=== PATIENT | female | born 1965 | race Caucasian/White ===

== ENCOUNTER 2016-06-10 14:51 | Outpatient (CLI) | payer BC ==
[2016-06-10 15:31] LABS: ALT (SGPT) 11 U/L (0-55); AST (SGOT) 14 U/L (5-34); Alkaline Phosphatase 60 U/L (40-150); Anion Gap 15 mmol/L (10-20); BUN (Urea Nitrogen) 18 mg/dL (9.8-20.1); Bilirubin, Total 1.2 mg/dL (0.2-1.2); Calc. Creatinine Clearance 0 mL/min (70-130); Calcium 9.3 mg/dL (7.8-10.44); Carbon Dioxide 22 mmol/L (22-29); Chloride 108 mmol/L (98-107); Estimated GFR-MDRD 50; LDL Cholesterol, Calculated 113 mg/dL; Protein, Total 6.9 g/dL (6.0-8.3)
[2016-06-10 16:13] LABS: #Basophils 0.1 thou/uL (0.0-0.2); #Eosinphils 0.2 thou/uL (0.0-0.7); #Lymphocytes 3.2 thou/uL (1.20-3.40); #Monocytes 0.6 thou/uL (0.11-0.59); #Neutrophils 5.2 thou/uL (1.40-6.50); %Basophils 1.1 % (0.0-1.0); %Eosinophils 1.7 % (0.0-10.0); %Monocytes 6.1 % (0.0-10.0); Hematocrit 42.3 % (36.0-47.0); Mean Platelet Volume 7.1 fL (7.4-10.4); Red Blood Cell (RBC) Count 4.86 mill/uL (4.20-5.40); White Blood Cell (WBC) Count 9.2 thou/uL (4.8-10.8)
[2016-06-10 19:41] LABS: Hemoglobin A1c 8.1 % (4.0-6.0)
== END 2016-06-10 14:52 ==
LOC: HPCALD 14:51
PROVIDERS: ATTEND Physician Assistant
DX: E78.5 Hyperlipidemia, unspecified (principal); E11.9 Type 2 diabetes mellitus without complications
CPT/HCPCS: 36415; 80053; 80061; 83036; 84443; 85025

== ENCOUNTER 2016-08-14 21:41 | Emergency (ER) | payer BC, OTHER ==
--- NOTE | 2016-08-15 08:34 | CT ---
PRELIMINARY REPORT/[facility]/EMERGENCY AFTER HOURS PROCEDURE: EXAM: CT Head Without Intravenous Contrast CLINICAL HISTORY: 51 years old, female; Injury or trauma; Injury Pt was trampled by a horse; Work related; Initial enc ounter; Concussion / head injury; Without loss of consciousness; Injury date: 08/14/16; Injury details : Pt complains of headache and nausea; Patient HX: Pt was trampled by a stallion horse around [address]. Pt complaining of headache and nausea. Pt states she may feel like she has a concussion. TECHNIQUE: Axial computed tomography images of the head/brain without intravenous contrast. COMPARISON: No relevant prior studies available. FINDINGS: Normal brain morphology. Guzman-white matter differentiation is preserved. No intracranial hemorrhage. No mass, mass effect or midline shift. No extra-axial fluid collection. No acute hydrocephalus. Cortical sulci and basal cisterns are preserved without effacement. Orbits are unremarkable. Paranasal sinuses are clear. Mastoid air cells are clear. No acute fracture. Extra calvarial soft tissues unremarkable. IMPRESSION: No acute intracranial abnormality. Thank you for allowing us to participate in the care of your patient. Dictated and Authenticated by: Donnie Becerra MD 08/14/2016 10:36 PM Central Time ([place] \T\ [place]) FINAL REPORT CT BRAIN: Date: 08/14/[address] was done following trauma. The ventricles are normal in size with no shift. No intr acranial bleeding or extra-axial hematoma was seen. There is no sign of mass, edema, or stroke. The calvarium appears intact and the sphenoid sinus and mastoid air cells are clear. IMPRESSION: No acute intracranial findings. POS: HOME
--- NOTE | 2016-08-15 09:46 | RAD ---
LEFT SHOULDER 3 VIEWS: Date: 08/14/16 FINDINGS: There is evidence of prior shoulder surgery. No acute fracture or dislocation seen. The distal clavi carol ann is a little irregular and this could relate to old trauma. There is no offset of the AC joint. T he visible adjacent ribs and the scapula appear intact. IMPRESSION: No acute findings. POS: HOME
== END 2016-08-14 22:57 | disposition home or self-care (01) ==
LOC: BURERS 21:41
DX: S43.402A Unspecified sprain of left shoulder joint, initial encounter (principal); S00.93XA Contusion of unspecified part of head, initial encounter; E11.9 Type 2 diabetes mellitus without complications; W22.8XXA Striking against or struck by other objects, initial encounter
CPT/HCPCS: 70450

== ENCOUNTER 2016-11-05 10:28 | Outpatient (CLI) | payer BC, OTHER ==
--- NOTE | 2016-11-05 19:49 | RAD ---
LEFT FOOT THREE VIEWS: Date: 11-05-16 FINDINGS: No fracture or periosteal reaction was seen. No area of bony destruction was detected. A large calca pranay spur was present. IMPRESSION: No acute bony findings. Calcaneal spur. POS: HOME
--- NOTE | 2016-11-05 20:18 | RAD ---
RIGHT FOOT THREE VIEWS: Date: 11-05-16 FINDINGS: No fracture or area of bony destruction was seen. There is a little bit of benign appearing linear p eriosteal reaction along the fourth metatarsal shaft. This could be due to venostasis or other relat ed benign changes. It does not appear acute. Old trauma to the distal end of the fifth metatarsal is noted. A small calcaneal spur was noted. IMPRESSION: Chronic findings but no acute changes. POS: HOME
== END 2016-11-05 10:29 | disposition home or self-care (01) ==
LOC: BURRAD 10:28
PROVIDERS: ATTEND Physician Assistant
DX: M79.671 Pain in right foot (principal); M79.672 Pain in left foot; M77.32 Calcaneal spur, left foot

== ENCOUNTER 2016-12-12 11:19 | Emergency (ER) | payer BC ==
[2016-12-12] MEDS ORDERED: Adacel (T-DAP) 0.5 ML VIAL ONE (11:31)
[2016-12-12] MEDS ORDERED: traMADol HCl 50 MG TAB ONE (11:34)
[2016-12-12] MEDS ORDERED: Bacitracin Zinc 1 Packet ONE (12:09)
--- NOTE | 2016-12-12 20:54 | RAD ---
RIGHT FEMUR: Date: 12-12-16 FINDINGS: AP and lateral views show no major fracture or opaque foreign body. The femur appears intact. A bony density along side the greater trochanter is probably due to prior tendinous damage or tendinitis. IMPRESSION: No acute bony finding. POS: HOME
== END 2016-12-12 12:20 | disposition home or self-care (01) ==
LOC: BURERS 11:19
DX: S70.11XA Contusion of right thigh, initial encounter (principal); E78.5 Hyperlipidemia, unspecified; E11.9 Type 2 diabetes mellitus without complications; K21.9 Gastro-esophageal reflux disease without esophagitis; Z79.82 Long term (current) use of aspirin; Z79.899 Other long term (current) drug therapy; W55.12XA Struck by horse, initial encounter
CPT/HCPCS: 90471; 90715

== ENCOUNTER 2017-04-03 18:16 | Emergency (ER) | payer BC, OTHER ==
[2017-04-03] MEDS ORDERED: HYDROcodone/Acetaminophen 10/325 mg Tablet ONE (22:22)
== END 2017-04-03 22:30 | disposition home or self-care (01) ==
LOC: BURERS 18:16
DX: S76.912A Strain of unspecified muscles, fascia and tendons at thigh level, left thigh, initial encounter (principal); M54.5 Low back pain; E78.5 Hyperlipidemia, unspecified; Z87.891 Personal history of nicotine dependence; Z79.899 Other long term (current) drug therapy; Z79.84 Long term (current) use of oral hypoglycemic drugs; Z79.82 Long term (current) use of aspirin; E11.9 Type 2 diabetes mellitus without complications; X50.9XXA Other and unspecified overexertion or strenuous movements or postures, initial encounter
CPT/HCPCS: 99283

== ENCOUNTER 2018-02-09 11:21 | Emergency (ER) | payer BC ==
--- NOTE | 2018-02-09 14:55 | RAD ---
LEFT HAND 3 VIEWS: Date: 02/09/18 No fracture seen. All bones and joints appear intact. IMPRESSION: No acute findings. POS: HOME
--- NOTE | 2018-02-09 14:56 | RAD ---
RIGHT KNEE 4 VIEWS: Date: 02/09/18 No fracture, dislocation, or joint effusion seen. Joint space is normal in width and the articular cisneros rfaces are smooth. IMPRESSION: No acute findings. POS: HOME
== END 2018-02-09 13:32 | disposition home or self-care (01) ==
LOC: BURERS 11:21
DX: S80.01XA Contusion of right knee, initial encounter (principal); S60.222A Contusion of left hand, initial encounter; S00.81XA Abrasion of other part of head, initial encounter; W01.0XXA Fall on same level from slipping, tripping and stumbling without subsequent striking against object, initial encounter

== ENCOUNTER 2021-05-15 12:15 | Outpatient (CLI) | payer BC | END 2021-05-15 12:16 | disposition home or self-care (01) | LOC: BURRAD 12:15 | PROVIDERS: ATTEND Physician Assistant | DX: M79.671 Pain in right foot (principal); Z91.81 History of falling ==